=== PATIENT | male | born 1950 | race African-American/Black ===

== ENCOUNTER 2023-07-02 01:38 | Inpatient (IN) | payer OTHER, MEDICAID, MEDICARE ==
[~2023-07-02] VITALS: Ht 172.7 cm; Wt 78.0 kg
[2023-07-02] VITALS (12 sets, daily range): BP systolic 125–162; BP diastolic 61–74; PULSE 63–68; RESP 12–27; TEMP 97.8–98.1
[2023-07-02] MEDS ORDERED: FUROSEMIDE 40MG/4ML VIAL IV ONE (02:00)
[2023-07-02] MEDS ORDERED: NITROGLYCERIN 0.4MG TABLET SL SL PRN ×2 (02:00→15:00)
[2023-07-02] MEDS ORDERED: NITROGLYCERIN 50MG PREMIX 250 ML IV PRN ×2 (02:00→02:15)
[2023-07-02 02:14] LABS: EOSINOPHILS % 4.9 % (0.0-5.0); HEMATOCRIT. 43.2 % (42.0-52.0); HEMOGLOBIN. 14.3 g/dL (14.0-18.0); LYMPHOCYTES % 33.1 % (20.0-50.0); MEAN CORPUSCULAR VOLUME 96.8 fL (80.0-94.0); MEAN PLATELET VOLUME 10.4 fl (7.4-10.4); MONOCYTES % 9.4 % (2.0-8.0); NEUTROPHILS % 51.6 % (40.0-76.0); PLATELET 291 x1000/uL (130-400); RED BLOOD CELL COUNT 4.47 mill/uL (4.7-6.1); RED CELL DISTRIBUTION WIDTH 13.8 % (11.6-14.6)
[2023-07-02 04:07] LABS: ALANINE AMINOTRANSFERASE 10 IU/L (10-49); ALBUMIN 3.9 g/dL (3.2-4.8); ASPARTATE AMINOTRANSFERASE 15 IU/L (<34); BILIRUBIN TOTAL 0.5 mg/dL (0.1-1.0); CALCIUM 9.4 mg/dL (8.7-10.4); CARBON DIOXIDE 25 mEq/L (21-32); CHLORIDE 99 mEq/L (98-107); GLUCOSE 275 mg/dL (70-105); POTASSIUM 4.6 mEq/L (3.5-5.1); PROTEIN TOTAL 6.9 g/dL (6.0-8.3); SODIUM 134 mEq/L (136-145); UREA NITROGEN BLOOD 29 mg/dL (9-23)
[2023-07-02 04:50] LABS: CREATININE 6.2 mg/dL (0.6-1.3); TROPONIN I HIGH SENSITIVITY 275 ng/L (3.0-53)
[2023-07-02 06:57] LABS: TROPONIN I HIGH SENSITIVITY 2047 ng/L (3.0-53)
[2023-07-02] MEDS ORDERED: IPRATROPIUM/ALBUTEROL 0.5-3(2.5)MG/3ML NEB HHN PRN (08:15)
[2023-07-02] MEDS ORDERED: ACETAMINOPHEN 325MG TABLET PO PRN ×2 (08:15→15:00)
[2023-07-02] MEDS ORDERED: CLONIDINE 0.1MG TABLET PO PRN (08:15)
[2023-07-02] MEDS ORDERED: DOCUSATE SODIUM 100MG CAPSULE PO PRN (08:15)
[2023-07-02] MEDS ORDERED: TRAMADOL 50MG TABLET PO PRN (08:15)
[2023-07-02] MEDS ORDERED: GUAIFENESIN 200MG/10ML SUGAR FREE UDC PO PRN (08:15)
[2023-07-02] MEDS ORDERED: ONDANSETRON HCL 4MG/2ML INJ IV PRN (08:15)
[2023-07-02] MEDS ORDERED: NITROGLYCERIN OINT 1GM/INCH UDPKT TD NR (08:45)
[2023-07-02] MEDS ORDERED: AMLODIPINE 10MG TABLET PO SCH (09:00)
[2023-07-02] MEDS ORDERED: CLOPIDOGREL 75MG TABLET PO SCH (09:15)
[2023-07-02] MEDS: INSULIN GLARGINE 100 UNITS/ML SUBCUT SCH (09:26)
[2023-07-02] MEDS: ASPIRIN 81MG EC TABLET PO SCH (10:00)
[2023-07-02] MEDS ORDERED: ENOXAPARIN 100MG/ML SYR SUBCUT NR (10:00)
[2023-07-02 10:28] LABS: TROPONIN I HIGH SENSITIVITY 5588 ng/L (3.0-53)
[2023-07-02 10:30] LABS: PROTHROMBIN TIME 10.7 sec (9.6-11.0)
[2023-07-02] MEDS ORDERED: DORZ1DRO7 OP (10:52)
[2023-07-02] MEDS ORDERED: INSU100I28 SQ (10:52)
[2023-07-02] MEDS ORDERED: CARV12.545 PO (10:52)
[2023-07-02] MEDS ORDERED: ISMO20 PO (10:52)
[2023-07-02] MEDS ORDERED: ATOR-2 PO (10:52)
[2023-07-02] MEDS ORDERED: AMLO10TA4 PO (10:52)
[2023-07-02] MEDS ORDERED: LUBI24CA5 PO (10:52)
[2023-07-02] MEDS ORDERED: LATA2.5D14 EACHEYE (10:55)
[2023-07-02] MEDS ORDERED: DEXTROSE 50% WATER 50ML SYRINGE IV PRN (11:15)
[2023-07-02 11:19] LABS: HEPATITIS A AB IGM NEGATIVE (Negative); HEPATITIS B CORE AB IGM NEGATIVE (Negative); HEPATITIS B SURFACE ANTIGEN NEGATIVE (Negative); HEPATITIS C AB NON REACTIVE (Neg) (Negative)
[2023-07-02] MEDS: BLOOD SUGAR DIAGNOSTIC STRIP TEST SCH ×3 (11:51→21:01)
[2023-07-02] MEDS: INSULIN LISPRO 100 UNITS/ML SUBCUT SCH ×3 (11:51→21:17)
[2023-07-02] MEDS ORDERED: HEPARIN 1000 UNITS/ML 10ML ONE (12:46)
[2023-07-02] MEDS ORDERED: LIDOCAINE HCL 1% 20ML VIAL (Pyxis) INJ ONE (12:46)
[2023-07-02] MEDS ORDERED: IODIXANOL 320MG/ML 100 ML BOTTLE IV ONE (12:46)
[2023-07-02] MEDS ORDERED: MIDAZOLAM HCL 2 MG/2 ML VIAL ONE (12:46)
[2023-07-02] MEDS ORDERED: FENTANYL CITRATE/PF 50MCG/ML 2ML VIAL ONE (12:46)
[2023-07-02] MEDS ORDERED: CEFAZOLIN SODIUM 1000MG/VIAL ONE (13:10)
[2023-07-02] MEDS ORDERED: CHLORHEXIDINE GLUCONATE 4% EXTERNAL USE TOP SCH ×2 (15:00→21:00)
[2023-07-02] MEDS: NITROGLYCERIN OINT 1GM/INCH UDPKT TD SCH ×2 (16:45→22:24)
[2023-07-02] MEDS ORDERED: IPRATROPIUM/ALBUTEROL 0.5-3(2.5)MG/3ML NEB HHN SCH (18:00)
[2023-07-02] MEDS ORDERED: DIPHENHYDRAMINE 25MG CAPSULE PO PRN (21:00)
[2023-07-02] MEDS ORDERED: ASCORBIC ACID 500 MG TABLET PO SCH (21:00)
[2023-07-02] MEDS ORDERED: DOCUSATE SODIUM 100MG CAPSULE PO SCH (21:00)
[2023-07-02] MEDS ORDERED: BISACODYL 10MG SUPP PR PRN (21:00)
[2023-07-02] MEDS: ALLOPURINOL 300 MG TABLET PO SCH (21:18)
[2023-07-03] VITALS (35 sets, daily range): BP systolic 96–157; BP diastolic 50–73; PULSE 57–124; RESP 11–34; TEMP 94.2–99; O2SAT 100
[2023-07-03] MEDS: ALLOPURINOL 300 MG TABLET PO SCH (06:18)
[2023-07-03] MEDS: NITROGLYCERIN OINT 1GM/INCH UDPKT TD SCH (06:18)
[2023-07-03] MEDS: BLOOD SUGAR DIAGNOSTIC STRIP TEST SCH ×9 (06:50→23:00)
[2023-07-03 06:54] LABS: BASOPHILS % 0.8 % (0.0-2.0); EOSINOPHILS % 4.2 % (0.0-5.0); HEMATOCRIT. 32.2 % (42.0-52.0); LYMPHOCYTES % 22.9 % (20.0-50.0); MEAN CORPUSCULAR HEMOGLOBIN 33.2 pg (28.0-32.0); MEAN CORPUSCULAR HGB CONC 34.2 g/dL (31.0-37.0); MEAN CORPUSCULAR VOLUME 97.1 fL (80.0-94.0); MONOCYTES % 14.2 % (2.0-8.0); NEUTROPHILS % 57.9 % (40.0-76.0); PLATELET 151 x1000/uL (130-400); RED BLOOD CELL COUNT 3.31 mill/uL (4.7-6.1); RED CELL DISTRIBUTION WIDTH 13.4 % (11.6-14.6); WHITE BLOOD COUNT 5.4 x1000/uL (4.5-11.0)
[2023-07-03] MEDS ORDERED: NOREPINEPHRINE 8MG/250ML PMX 250ML IV NR (07:00)
[2023-07-03] MEDS ORDERED: NOREPINEPHRINE 8 MG in DEXT 5% WATER 250 ML IV NR (07:00)
[2023-07-03] MEDS ORDERED: CEFAZOLIN 2,000 MG in DEXT 5% WATER 100 ML IV NR (07:00)
[2023-07-03] MEDS ORDERED: DOBUTAMINE 250 MG/250 ML PREMIX IV NR (07:00)
[2023-07-03] MEDS ORDERED: INSULIN REGULAR 100 U/100 ML PREMIX IV NR (07:00)
[2023-07-03] MEDS ORDERED: NICARDIPINE 40MG/200ML PREMIX 230 ML IV NR (07:00)
[2023-07-03] MEDS ORDERED: EPINEPHRINE 5 MG in DEXT 5% WATER 250 ML IV NR (07:00)
[2023-07-03] MEDS ORDERED: PAPAVERINE HCL 180MG in SODIUM CHLORIDE 0.9% 24ML IV NR (07:00)
[2023-07-03] MEDS ORDERED: DEL NIDO CARDIOPLEGIA 1,000 ML (PREMIX) IV NR ×2 (07:00)
[2023-07-03 07:35] LABS: ALANINE AMINOTRANSFERASE 8 IU/L (10-49); ALBUMIN 3.3 g/dL (3.2-4.8); ASPARTATE AMINOTRANSFERASE 24 IU/L (<34); BILIRUBIN TOTAL 0.6 mg/dL (0.1-1.0); CALCIUM 8.9 mg/dL (8.7-10.4); CARBON DIOXIDE 24 mEq/L (21-32); CHLORIDE 101 mEq/L (98-107); CHOLESTEROL 106 mg/dL (<200); GLUCOSE 183 mg/dL (70-105); HDL CHOLESTEROL 24 mg/dL (>55); LDL CHOLESTEROL 63 mg/dL (5-100); POTASSIUM 4.8 mEq/L (3.5-5.1); SODIUM 135 mEq/L (136-145); TRIGLYCERIDE 93 mg/dL (0-150); UREA NITROGEN BLOOD 37 mg/dL (9-23)
[2023-07-03] MEDS: ASPIRIN 81MG EC TABLET PO SCH (07:46)
[2023-07-03 07:53] LABS: CREATININE 6.4 mg/dL (0.6-1.3); TROPONIN I HIGH SENSITIVITY 7889 ng/L (3.0-53)
[2023-07-03] MEDS: INSULIN LISPRO 100 UNITS/ML SUBCUT SCH ×3 (08:52→21:00)
[2023-07-03] MEDS ORDERED: AMLODIPINE 5MG TABLET PO SCH (09:00)
[2023-07-03] MEDS: INSULIN GLARGINE 100 UNITS/ML SUBCUT SCH (10:00)
[2023-07-03] MEDS ORDERED: POLYMYXIN B SULFATE 500000 UNITS/VIAL ONE (10:42)
[2023-07-03] MEDS ORDERED: THROMBIN (BOVINE) 5000 UNITS/VIAL TOP ONE (10:43)
[2023-07-03] MEDS ORDERED: SKIN ADHESIVE 0.7 GM EA TOP ONE (10:43)
[2023-07-03] MEDS ORDERED: SEVOFLURANE 250 ML LIQUID INH ONE (10:50)
[2023-07-03] MEDS ORDERED: DOPAMINE 400MG/250ML PREMIX 250 ML IV ONE (10:50)
[2023-07-03] MEDS ORDERED: HEPARIN 1000 UNITS/ML 10ML ONE ×2 (10:51→10:59)
[2023-07-03] MEDS ORDERED: NICARDIPINE 40MG/200ML PREMIX 200 ML IV ONE (10:51)
[2023-07-03] MEDS ORDERED: NITROGLYCERIN 50MG PREMIX 250 ML IV ONE (10:51)
[2023-07-03] MEDS ORDERED: LIDOCAINE HCL 1% 10 MG/ML 10ML VIAL ONE (10:59)
[2023-07-03] MEDS ORDERED: VECURONIUM BROMIDE 10 MG/VIAL IV ONE (10:59)
[2023-07-03] MEDS ORDERED: AMINOCAPROIC ACID 250 MG/ML 20ML VIAL ONE (10:59)
[2023-07-03] MEDS ORDERED: LIDOCAINE HCL 2% 5ML SYRINGE IV ONE (11:00)
[2023-07-03] MEDS ORDERED: PHENYLEPHRINE HCL 10 MG/ML 1ML (IV VIAL) IV ONE (11:02)
[2023-07-03] MEDS ORDERED: ETOMIDATE 2MG/ML 10ML VIAL IV ONE ×2 (11:03→11:06)
[2023-07-03] MEDS ORDERED: PROPOFOL 200MG/20ML VIAL IV ONE (11:07)
[2023-07-03] MEDS ORDERED: MAGNESIUM SULFATE 5GM/10ML VIAL IV ONE (11:10)
[2023-07-03] MEDS ORDERED: ALBUMIN HUMAN 25GM/100ML (25%) IV ONE (11:10)
[2023-07-03] MEDS ORDERED: FENTANYL CITRATE/PF 50MCG/ML 2ML VIAL ONE ×2 (11:20)
[2023-07-03] MEDS ORDERED: CALCIUM CHLORIDE 1GM/10ML SYR IV ONE ×2 (11:21→16:00)
[2023-07-03] MEDS ORDERED: ACETAMINOPHEN 500MG TABLET ONE (12:00)
[2023-07-03] MEDS ORDERED: FUROSEMIDE 20MG/2ML VIAL ONE (12:58)
[2023-07-03] MEDS ORDERED: NALOXONE HCL 0.4MG/ML VIAL IV PRN (13:45)
[2023-07-03] MEDS ORDERED: SODIUM BICARBONATE 8.4% 1 MEQ/ML 50ML SYR IV ONE (14:23)
[2023-07-03 14:25] LABS: CLARITY URINE CLOUDY (CLEAR); COLOR URINE YELLOW (YELLOW); GLUCOSE URINE TRACE (NEGATIVE); KETONES URINE NEGATIVE (NEGATIVE); LEUKOCYTE ESTERASE URINE 2+ (NEGATIVE); NITRITE URINE NEGATIVE (NEGATIVE); OCCULT BLOOD URINE 2+ (NEGATIVE); PROTEIN URINE 3+ (NEGATIVE); UROBILINOGEN URINE 0.2 E.U./dL (0.2-1.0)
[2023-07-03] MEDS ORDERED: PROTAMINE SULFATE 10MG/ML VIAL 25ML IV ONE (14:31)
[2023-07-03] MEDS ORDERED: GLYCOPYRROLATE 0.2 MG/ML 2ML VIAL ONE (14:34)
[2023-07-03] MEDS ORDERED: NEOSTIGMINE METHYLSULFATE 1MG/ML 10 ML VIAL ONE (14:34)
[2023-07-03 14:52] LABS: WBC URINE TNTC /hpf (0-2)
[2023-07-03 14:54] LABS: SQUAMOUS EPITHELIAL CELL URINE NONE SEEN /lpf (RARE/1+)
[2023-07-03 14:55] LABS: BACTERIA URINE 2+
[2023-07-03] MEDS ORDERED: ONDANSETRON HCL 4MG/2ML INJ ONE (15:10)
[2023-07-03] MEDS ORDERED: MAGNESIUM 2 G PREMIX 50 ML IV PRN (15:30)
[2023-07-03] MEDS ORDERED: ALBUMIN HUMAN 25GM/100ML (25%) IV PRN (15:30)
[2023-07-03] MEDS ORDERED: EPINEPHRINE 5 MG in DEXT 5% WATER 245 ML IV PRN (15:30)
[2023-07-03] MEDS ORDERED: CALCIUM CHLORIDE 3,000 MG in DEXT 5% WATER 250 ML IV PRN (15:30)
[2023-07-03] MEDS ORDERED: OXYCODONE HCL/ACETAMINOPHEN 5/325MG TABLET PO PRN (15:30)
[2023-07-03] MEDS ORDERED: CALCIUM CHLORIDE 5,000 MG in DEXT 5% WATER 500 ML IV PRN (15:30)
[2023-07-03] MEDS ORDERED: SODIUM CHLORIDE 0.9% 500 ML IV PRN (15:30)
[2023-07-03] MEDS ORDERED: MAGNESIUM SULFATE 3 GM in DEXT 5% WATER 100 ML IV PRN (15:30)
[2023-07-03] MEDS ORDERED: ACETAMINOPHEN 325MG TABLET PO PRN (15:30)
[2023-07-03] MEDS ORDERED: NITROGLYCERIN 50MG PREMIX 250 ML IV PRN (15:30)
[2023-07-03] MEDS ORDERED: KETOROLAC 30MG/ML VIAL IV PRN (15:30)
[2023-07-03] MEDS ORDERED: ALBUMIN HUMAN 12.5G/250ML (5%) IV PRN (15:30)
[2023-07-03] MEDS: DEXT 5%/0.45% NACL 1000ML 1,000 ML IV SCH (16:00)
[2023-07-03] MEDS: INSULIN REGULAR 100U/100ML PMX 100 ML IV SCH (16:00)
[2023-07-03] MEDS ORDERED: DEXTROSE 50% WATER 50ML SYRINGE IV PRN (16:00)
[2023-07-03] MEDS: DOPAMINE 400MG/250ML PREMIX 250 ML IV PRN (16:04)
[2023-07-03] MEDS ORDERED: CALCIUM CHLORIDE 1GM/10ML SYR IV NR (16:15)
[2023-07-03 16:18] LABS: BG BASE EXCESS -5.5 mmol/L (-2.0-2.0); BG CARBOXYHEMOGLOBIN 0.3 % (0.5-1.5); BG DEOXYHEMOGLOBIN 1.1 % (0.0-5.0); BG FRACTION INSPIRED OXYGEN 100; BG HCO3 ACT 20.3 mmol/L (22.0-26.0); BG METHEMOGLOBIN 0.3 % (0.0-1.5); BG OXYGEN SATURATION 98.9 % (92.0-98.5); BG OXYHEMOGLOBIN 98.3 % (94.0-97.0); BG PCO2 40.5 mmHg (35.0-45.0); BG PH 7.317 (7.350-7.450); BG PO2 262.9 mmHg (75.0-100.0); BG SAMPLE SITE ALINE; BG TOTAL HEMOGLOBIN 11.4 g/dL (12.0-18.0); BG VENT MODE MASK - NRB
[2023-07-03] MEDS ORDERED: SODIUM BICARBONATE 8.4% 1 MEQ/ML 50ML SYR IV NR (16:30)
[2023-07-03 16:32] LABS: BASOPHILS % 0.3 % (0.0-2.0); EOSINOPHILS % 0.5 % (0.0-5.0); HEMATOCRIT. 31.3 % (42.0-52.0); HEMOGLOBIN. 10.3 g/dL (14.0-18.0); MEAN CORPUSCULAR HEMOGLOBIN 32.2 pg (28.0-32.0); MEAN CORPUSCULAR HGB CONC 32.9 g/dL (31.0-37.0); MEAN CORPUSCULAR VOLUME 97.9 fL (80.0-94.0); MEAN PLATELET VOLUME 9.8 fl (7.4-10.4); MONOCYTES % 3.4 % (2.0-8.0); NEUTROPHILS % 87.8 % (40.0-76.0); PLATELET 168 x1000/uL (130-400); RED CELL DISTRIBUTION WIDTH 13.3 % (11.6-14.6); WHITE BLOOD COUNT 13.6 x1000/uL (4.5-11.0)
[2023-07-03 16:40] LABS: INR 1.1; PROTHROMBIN TIME 11.8 sec (9.6-11.0)
[2023-07-03 16:55] LABS: CALCIUM 11.3 mg/dL (8.7-10.4); CARBON DIOXIDE 21 mEq/L (21-32); CHLORIDE 101 mEq/L (98-107); GLUCOSE 245 mg/dL (70-105); POTASSIUM 3.8 mEq/L (3.5-5.1); SODIUM 138 mEq/L (136-145); UREA NITROGEN BLOOD 43 mg/dL (9-23)
[2023-07-03] MEDS: BACITRACIN 14GM TUBE TOP SCH (17:00)
[2023-07-03] MEDS ORDERED: VANCOMYCIN 1500MG in DEXTROSE 5% WATER 250ML IV NR (17:00)
[2023-07-03 17:14] LABS: CREATININE 6.8 mg/dL (0.6-1.3)
[2023-07-03] MEDS ORDERED: AMIODARONE 150MG/100ML PREMIX 100 ML IV NR (17:30)
[2023-07-03] MEDS: MAGNESIUM 1 G PREMIX 100 ML IV PRN (18:08)
[2023-07-03] MEDS: AMIODARONE HCL 900 MG in DEXT 5% WATER 482 ML IV PRN (18:08)
[2023-07-03] MEDS: OXYCODONE HCL/ACETAMINOPHEN 5/325MG TABLET PO PRN (19:29)
[2023-07-03] MEDS ORDERED: INSULIN REGULAR 100U/100ML PMX 100 ML IV SCH (20:15)
[2023-07-03] MEDS: ATORVASTATIN CALCIUM 20MG TABLET PO SCH (20:22)
[2023-07-03] MEDS: AMIODARONE HCL 200 MG TABLET PO SCH (20:23)
[2023-07-03] MEDS ORDERED: FENTANYL CITRATE/PF 50MCG/ML 2ML VIAL IV NR (20:45)
[2023-07-03] MEDS: IPRATROPIUM/ALBUTEROL 0.5-3(2.5)MG/3ML NEB HHN SCH (20:52)
[2023-07-03] MEDS: ASPIRIN 81MG TABLET PO SCH (22:22)
[2023-07-03] MEDS: CLOPIDOGREL 75MG TABLET PO SCH (22:23)
[2023-07-03] MEDS: ONDANSETRON HCL 4MG/2ML INJ IV PRN (22:43)
[2023-07-04] VITALS (94 sets, daily range): BP systolic 104–200; BP diastolic 45–87; PULSE 48–96; RESP 10–36; TEMP 97.1–98.6; O2SAT 99–100
[2023-07-04] MEDS: IPRATROPIUM/ALBUTEROL 0.5-3(2.5)MG/3ML NEB HHN SCH ×6 (00:08→19:30)
[2023-07-04 00:52] LABS: HEMATOCRIT. 29.4 % (42.0-52.0); HEMOGLOBIN. 9.9 g/dL (14.0-18.0); MEAN CORPUSCULAR HEMOGLOBIN 32.6 pg (28.0-32.0); MEAN CORPUSCULAR HGB CONC 33.7 g/dL (31.0-37.0); MEAN CORPUSCULAR VOLUME 96.7 fL (80.0-94.0); MEAN PLATELET VOLUME 9.6 fl (7.4-10.4); PLATELET 208 x1000/uL (130-400); RED BLOOD CELL COUNT 3.04 mill/uL (4.7-6.1); RED CELL DISTRIBUTION WIDTH 13.4 % (11.6-14.6); WHITE BLOOD COUNT 15.2 x1000/uL (4.5-11.0)
[2023-07-04 00:57] LABS: DIFFERENTIAL COMMENT 1
[2023-07-04] MEDS: BLOOD SUGAR DIAGNOSTIC STRIP TEST SCH ×24 (01:00→23:16)
[2023-07-04 01:30] LABS: CALCIUM 10.2 mg/dL (8.7-10.4); CARBON DIOXIDE 23 mEq/L (21-32); CHLORIDE 100 mEq/L (98-107); GLUCOSE 138 mg/dL (70-105); PHOSPHORUS 1.4 mg/dL (2.5-4.9); POTASSIUM 3.4 mEq/L (3.5-5.1); SODIUM 138 mEq/L (136-145); UREA NITROGEN BLOOD 47 mg/dL (9-23)
[2023-07-04 01:33] LABS: CREATININE 7.4 mg/dL (0.6-1.3)
[2023-07-04] MEDS: ONDANSETRON HCL 4MG/2ML INJ IV PRN ×4 (01:53→20:20)
[2023-07-04] MEDS ORDERED: KCL 20MEQ/100ML PREMIX 50 ML IV NR (02:30)
[2023-07-04] MEDS: DOPAMINE 400MG/250ML PREMIX 250 ML IV PRN (04:07)
[2023-07-04] MEDS ORDERED: KCL 20MEQ/100ML PREMIX 100 ML IV NR (04:30)
[2023-07-04 06:27] LABS: BG BASE EXCESS -1.3 mmol/L (-2.0-2.0); BG DEOXYHEMOGLOBIN 2.9 % (0.0-5.0); BG FRACTION INSPIRED OXYGEN 28; BG HCO3 ACT 23.6 mmol/L (22.0-26.0); BG METHEMOGLOBIN 0.3 % (0.0-1.5); BG OXYGEN SATURATION 97.1 % (92.0-98.5); BG OXYHEMOGLOBIN 96.8 % (94.0-97.0); BG PCO2 40.4 mmHg (35.0-45.0); BG PH 7.385 (7.350-7.450); BG PO2 110.2 mmHg (75.0-100.0); BG SAMPLE SITE ALINE; BG TOTAL HEMOGLOBIN 11.3 g/dL (12.0-18.0); BG VENT MODE NASAL CANNULA
[2023-07-04 06:53] LABS: HEMATOCRIT. 30.3 % (42.0-52.0); HEMOGLOBIN. 10.4 g/dL (14.0-18.0); MEAN CORPUSCULAR HEMOGLOBIN 32.6 pg (28.0-32.0); MEAN CORPUSCULAR HGB CONC 34.2 g/dL (31.0-37.0); MEAN CORPUSCULAR VOLUME 95.2 fL (80.0-94.0); MEAN PLATELET VOLUME 9.8 fl (7.4-10.4); PLATELET 227 x1000/uL (130-400); RED BLOOD CELL COUNT 3.19 mill/uL (4.7-6.1); RED CELL DISTRIBUTION WIDTH 13.5 % (11.6-14.6); WHITE BLOOD COUNT 19.3 x1000/uL (4.5-11.0)
[2023-07-04 07:09] LABS: CALCIUM 9.6 mg/dL (8.7-10.4); CARBON DIOXIDE 23 mEq/L (21-32); CHLORIDE 100 mEq/L (98-107); GLUCOSE 138 mg/dL (70-105); PHOSPHORUS 3.8 mg/dL (2.5-4.9); POTASSIUM 5.1 mEq/L (3.5-5.1); SODIUM 135 mEq/L (136-145); UREA NITROGEN BLOOD 51 mg/dL (9-23)
[2023-07-04 07:26] LABS: DIFFERENTIAL COMMENT 1
[2023-07-04 07:27] LABS: CREATININE 7.3 mg/dL (0.6-1.3)
[2023-07-04] MEDS: INSULIN LISPRO 100 UNITS/ML SUBCUT SCH ×2 (08:20→12:44)
[2023-07-04] MEDS: AMIODARONE HCL 200 MG TABLET PO SCH ×2 (08:38→20:20)
[2023-07-04] MEDS: FAMOTIDINE 20MG/2ML VIAL IV SCH (08:39)
[2023-07-04] MEDS: AMIODARONE HCL 900 MG in DEXT 5% WATER 482 ML IV PRN (08:39)
[2023-07-04] MEDS: MAGNESIUM 1 G PREMIX 100 ML IV PRN (08:40)
[2023-07-04] MEDS: BACITRACIN 14GM TUBE TOP SCH ×2 (09:00→17:45)
[2023-07-04] MEDS: INSULIN GLARGINE 100 UNITS/ML SUBCUT SCH (09:11)
[2023-07-04] MEDS ORDERED: METOCLOPRAMIDE HCL 10MG/2ML VIAL IV PRN (09:15)
[2023-07-04 09:20] LABS: PLATELET ESTIMATE NORMAL
[2023-07-04 10:43] LABS: PLATELET ESTIMATE NORMAL
[2023-07-04] MEDS ORDERED: WATER IV NR (11:00)
[2023-07-04] MEDS ORDERED: DEXT 5% IV NR (11:00)
[2023-07-04] MEDS ORDERED: CALCIUM GLUCONATE IV NR (11:00)
[2023-07-04 12:47] LABS: HEMATOCRIT. 31.7 % (42.0-52.0); HEMOGLOBIN. 10.5 g/dL (14.0-18.0); MEAN CORPUSCULAR HEMOGLOBIN 32.5 pg (28.0-32.0); MEAN CORPUSCULAR HGB CONC 33.1 g/dL (31.0-37.0); MEAN PLATELET VOLUME 9.8 fl (7.4-10.4); PLATELET 206 x1000/uL (130-400); RED BLOOD CELL COUNT 3.24 mill/uL (4.7-6.1); RED CELL DISTRIBUTION WIDTH 13.8 % (11.6-14.6)
[2023-07-04] MEDS ORDERED: KETOROLAC 30MG/ML VIAL IV PRN (13:00)
[2023-07-04 13:05] LABS: DIFFERENTIAL COMMENT 1
[2023-07-04 13:38] LABS: PLATELET ESTIMATE NORMAL
[2023-07-04 13:51] LABS: CARBON DIOXIDE 21 mEq/L (21-32); CHLORIDE 98 mEq/L (98-107); GLUCOSE 145 mg/dL (70-105); PHOSPHORUS 4.8 mg/dL (2.5-4.9); POTASSIUM 5.7 mEq/L (3.5-5.1); SODIUM 132 mEq/L (136-145); UREA NITROGEN BLOOD 54 mg/dL (9-23)
[2023-07-04 14:01] LABS: CREATININE 7.7 mg/dL (0.6-1.3)
[2023-07-04] MEDS ORDERED: DEXTROSE 50% WATER 50ML SYRINGE IV NR (14:45)
[2023-07-04] MEDS ORDERED: INSULIN REGULAR (HUMULIN R) 300UNITS/3ML VIAL IV NR (14:45)
[2023-07-04] MEDS ORDERED: CALCIUM CHLORIDE 1GM/10ML SYR IV ONE (14:45)
[2023-07-04] MEDS ORDERED: CALCIUM CHLORIDE 2,000 MG in DEXT 5% WATER 250 ML IV NR (15:30)
[2023-07-04] MEDS: INSULIN REGULAR 100U/100ML PMX 100 ML IV SCH (15:54)
[2023-07-04] MEDS: DEXT 5%/0.45% NACL 1000ML 1,000 ML IV SCH (15:59)
[2023-07-04] MEDS: METOCLOPRAMIDE HCL 10MG/2ML VIAL IV SCH ×2 (17:45→23:17)
[2023-07-04 19:07] LABS: DIFFERENTIAL COMMENT 1; HEMOGLOBIN. 10.8 g/dL (14.0-18.0); MEAN CORPUSCULAR HEMOGLOBIN 32.1 pg (28.0-32.0); MEAN CORPUSCULAR HGB CONC 32.8 g/dL (31.0-37.0); MEAN CORPUSCULAR VOLUME 97.9 fL (80.0-94.0); MEAN PLATELET VOLUME 9.5 fl (7.4-10.4); PLATELET 197 x1000/uL (130-400); RED BLOOD CELL COUNT 3.37 mill/uL (4.7-6.1); RED CELL DISTRIBUTION WIDTH 13.8 % (11.6-14.6); WHITE BLOOD COUNT 19.7 x1000/uL (4.5-11.0)
[2023-07-04 19:37] LABS: PHOSPHORUS 5.6 mg/dL (2.5-4.9)
[2023-07-04] MEDS: DEXTROSE 50% WATER 50ML SYRINGE IV PRN (20:20)
[2023-07-04] MEDS: ATORVASTATIN CALCIUM 20MG TABLET PO SCH (20:20)
[2023-07-04] MEDS: OXYCODONE HCL/ACETAMINOPHEN 5/325MG TABLET PO PRN (20:21)
[2023-07-04 23:19] LABS: PLATELET ESTIMATE NORMAL
[2023-07-05] VITALS (97 sets, daily range): BP systolic 96–180; BP diastolic 39–106; PULSE 45–76; RESP 10–45; TEMP 97–98.5; O2SAT 94–100
[2023-07-05] MEDS: IPRATROPIUM/ALBUTEROL 0.5-3(2.5)MG/3ML NEB HHN SCH ×6 (00:33→20:22)
[2023-07-05] MEDS: BLOOD SUGAR DIAGNOSTIC STRIP TEST SCH ×17 (01:11→21:00)
[2023-07-05 01:20] LABS: HEMATOCRIT. 31.8 % (42.0-52.0); HEMOGLOBIN. 10.7 g/dL (14.0-18.0); MEAN CORPUSCULAR HEMOGLOBIN 32.8 pg (28.0-32.0); MEAN CORPUSCULAR HGB CONC 33.8 g/dL (31.0-37.0); MEAN CORPUSCULAR VOLUME 97.1 fL (80.0-94.0); MEAN PLATELET VOLUME 10.1 fl (7.4-10.4); PLATELET 184 x1000/uL (130-400); RED BLOOD CELL COUNT 3.27 mill/uL (4.7-6.1); RED CELL DISTRIBUTION WIDTH 13.5 % (11.6-14.6); WHITE BLOOD COUNT 18.4 x1000/uL (4.5-11.0)
[2023-07-05 01:21] LABS: CALCIUM 10.3 mg/dL (8.7-10.4); CARBON DIOXIDE 26 mEq/L (21-32); CHLORIDE 101 mEq/L (98-107); GLUCOSE 110 mg/dL (70-105); POTASSIUM 4.8 mEq/L (3.5-5.1); SODIUM 136 mEq/L (136-145); UREA NITROGEN BLOOD 32 mg/dL (9-23)
[2023-07-05 01:56] LABS: CREATININE 5.2 mg/dL (0.6-1.3)
[2023-07-05] MEDS: DIPHENHYDRAMINE 50MG/ML VIAL IV PRN (01:59)
[2023-07-05 02:15] LABS: DIFFERENTIAL COMMENT 1
[2023-07-05] MEDS: DEXTROSE 50% WATER 50ML SYRINGE IV PRN ×3 (03:08→12:11)
[2023-07-05] MEDS: METOCLOPRAMIDE HCL 10MG/2ML VIAL IV SCH ×4 (05:23→23:41)
[2023-07-05 06:18] LABS: HEMATOCRIT. 31.5 % (42.0-52.0); HEMOGLOBIN. 10.5 g/dL (14.0-18.0); MEAN CORPUSCULAR HEMOGLOBIN 32.4 pg (28.0-32.0); MEAN CORPUSCULAR HGB CONC 33.2 g/dL (31.0-37.0); MEAN CORPUSCULAR VOLUME 97.6 fL (80.0-94.0); MEAN PLATELET VOLUME 10.3 fl (7.4-10.4); PLATELET 166 x1000/uL (130-400); RED BLOOD CELL COUNT 3.23 mill/uL (4.7-6.1); RED CELL DISTRIBUTION WIDTH 13.8 % (11.6-14.6); WHITE BLOOD COUNT 14.5 x1000/uL (4.5-11.0)
[2023-07-05] MEDS: DOPAMINE 400MG/250ML PREMIX 250 ML IV PRN (06:20)
[2023-07-05 06:29] LABS: DIFFERENTIAL COMMENT 1
[2023-07-05 06:44] LABS: CALCIUM 9.8 mg/dL (8.7-10.4); CARBON DIOXIDE 21 mEq/L (21-32); CHLORIDE 100 mEq/L (98-107); GLUCOSE 164 mg/dL (70-105); PHOSPHORUS 5.7 mg/dL (2.5-4.9); SODIUM 134 mEq/L (136-145); UREA NITROGEN BLOOD 36 mg/dL (9-23)
[2023-07-05] MEDS ORDERED: DOPAMINE 400MG/250ML PREMIX 250 ML IV SCH (06:45)
[2023-07-05 07:02] LABS: CREATININE 5.9 mg/dL (0.6-1.3)
[2023-07-05 07:03] LABS: POTASSIUM 6.4 mEq/L (3.5-5.1)
[2023-07-05] MEDS ORDERED: DEXTROSE 50% WATER 50ML SYRINGE IV NR (07:30)
[2023-07-05] MEDS ORDERED: INSULIN REGULAR (HUMULIN R) 300UNITS/3ML VIAL IV NR (07:30)
[2023-07-05 09:02] LABS: PLATELET ESTIMATE NORMAL
[2023-07-05] MEDS: BACITRACIN 14GM TUBE TOP SCH ×2 (09:07→18:26)
[2023-07-05 09:17] LABS: PLATELET ESTIMATE NORMAL
[2023-07-05] MEDS ORDERED: CALCIUM CHLORIDE 2,000 MG in DEXT 5% WATER 250 ML IV NR (09:30)
[2023-07-05] MEDS: INSULIN GLARGINE 100 UNITS/ML SUBCUT SCH (09:33)
[2023-07-05 14:20] LABS: POTASSIUM 4.6 mEq/L (3.5-5.1)
[2023-07-05] MEDS ORDERED: DEXTROSE 50% WATER 50ML SYRINGE IV PRN (18:15)
[2023-07-05] MEDS: INSULIN LISPRO 100 UNITS/ML SUBCUT SCH ×2 (18:20→20:49)
[2023-07-05] MEDS: DEXT 5%/0.45% NACL 1000ML 1,000 ML IV SCH (18:26)
[2023-07-05] MEDS: ATORVASTATIN CALCIUM 20MG TABLET PO SCH (20:46)
[2023-07-05] MEDS: AMIODARONE HCL 200 MG TABLET PO SCH (20:46)
[2023-07-06] VITALS (92 sets, daily range): BP systolic 100–177; BP diastolic 42–131; PULSE 62–70; RESP 13–29; TEMP 97.6–98.7; O2SAT 96–100
[2023-07-06] MEDS: IPRATROPIUM/ALBUTEROL 0.5-3(2.5)MG/3ML NEB HHN SCH ×6 (00:33→21:49)
[2023-07-06] MEDS: OXYCODONE HCL/ACETAMINOPHEN 5/325MG TABLET PO PRN (02:29)
[2023-07-06 06:30] LABS: HEMATOCRIT. 30.2 % (42.0-52.0); HEMOGLOBIN. 10.2 g/dL (14.0-18.0); MEAN CORPUSCULAR HGB CONC 33.8 g/dL (31.0-37.0); MEAN CORPUSCULAR VOLUME 97.7 fL (80.0-94.0); MEAN PLATELET VOLUME 10.2 fl (7.4-10.4); PLATELET 155 x1000/uL (130-400); RED CELL DISTRIBUTION WIDTH 14.1 % (11.6-14.6); WHITE BLOOD COUNT 12.2 x1000/uL (4.5-11.0)
[2023-07-06] MEDS: METOCLOPRAMIDE HCL 10MG/2ML VIAL IV SCH ×3 (07:12→18:15)
[2023-07-06 07:35] LABS: DIFFERENTIAL COMMENT 1
[2023-07-06] MEDS: BLOOD SUGAR DIAGNOSTIC STRIP TEST SCH ×4 (08:18→20:34)
[2023-07-06] MEDS: AMIODARONE HCL 200 MG TABLET PO SCH ×2 (08:31→20:44)
[2023-07-06] MEDS ORDERED: ASPIRIN 81MG TABLET ONE (08:46)
[2023-07-06] MEDS: FAMOTIDINE 20MG/2ML VIAL IV SCH (08:49)
[2023-07-06] MEDS: CLOPIDOGREL 75MG TABLET PO SCH (08:50)
[2023-07-06] MEDS: ASPIRIN 81MG TABLET PO SCH (08:50)
[2023-07-06] MEDS: AMLODIPINE 5MG TABLET PO SCH ×2 (08:50→20:44)
[2023-07-06] MEDS: BACITRACIN 14GM TUBE TOP SCH ×2 (08:51→17:20)
[2023-07-06] MEDS: INSULIN LISPRO 100 UNITS/ML SUBCUT SCH ×4 (08:58→20:34)
[2023-07-06 09:59] LABS: CALCIUM 9.7 mg/dL (8.7-10.4); POTASSIUM 5.5 mEq/L (3.5-5.1)
[2023-07-06 10:33] LABS: CREATININE 6.4 mg/dL (0.6-1.3)
[2023-07-06] MEDS: INSULIN GLARGINE 100 UNITS/ML SUBCUT SCH (11:20)
[2023-07-06] MEDS: CEFTRIAXONE 1,000 MG in DEXTROSE 5% WATER 50 ML IV SCH (12:38)
[2023-07-06 13:01] LABS: PLATELET ESTIMATE NORMAL
[2023-07-06] MEDS: DEXT 5%/0.45% NACL 1000ML 1,000 ML IV SCH (17:20)
[2023-07-06 19:42] LABS: POTASSIUM 3.8 mEq/L (3.5-5.1)
[2023-07-06] MEDS: ATORVASTATIN CALCIUM 20MG TABLET PO SCH (20:45)
[2023-07-06] MEDS ORDERED: NITROFURANTOIN 100MG M/M CAPSULE PO SCH (21:00)
[2023-07-06] MEDS: DIPHENHYDRAMINE 50MG/ML VIAL IV PRN (22:07)
[2023-07-07] VITALS (32 sets, daily range): BP systolic 119–178; BP diastolic 53–84; PULSE 60–98; RESP 14–29; TEMP 97.2–98.5; O2SAT 92–99
[2023-07-07] MEDS: METOCLOPRAMIDE HCL 10MG/2ML VIAL IV SCH ×4 (00:33→18:02)
[2023-07-07] MEDS: IPRATROPIUM/ALBUTEROL 0.5-3(2.5)MG/3ML NEB HHN SCH ×6 (01:50→20:43)
[2023-07-07] MEDS ORDERED: DOPAMINE 400MG/250ML PREMIX 250 ML IV PRN (02:45)
[2023-07-07 05:47] LABS: BASOPHILS % 0.3 % (0.0-2.0); EOSINOPHILS % 1.1 % (0.0-5.0); HEMATOCRIT. 28.1 % (42.0-52.0); HEMOGLOBIN. 9.4 g/dL (14.0-18.0); LYMPHOCYTES % 7.6 % (20.0-50.0); MEAN CORPUSCULAR HEMOGLOBIN 32.8 pg (28.0-32.0); MEAN CORPUSCULAR HGB CONC 33.5 g/dL (31.0-37.0); MEAN PLATELET VOLUME 10.1 fl (7.4-10.4); MONOCYTES % 14.6 % (2.0-8.0); NEUTROPHILS % 76.4 % (40.0-76.0); PLATELET 167 x1000/uL (130-400); RED BLOOD CELL COUNT 2.87 mill/uL (4.7-6.1); RED CELL DISTRIBUTION WIDTH 13.7 % (11.6-14.6); WHITE BLOOD COUNT 10.3 x1000/uL (4.5-11.0)
[2023-07-07 07:14] LABS: POTASSIUM 4.1 mEq/L (3.5-5.1)
[2023-07-07] MEDS ORDERED: METHYLPREDNISOLONE SOD SUCC 125MG/2ML (ACT-O-VIAL) IV NR (07:30)
[2023-07-07 07:42] LABS: CREATININE 5.6 mg/dL (0.6-1.3)
[2023-07-07] MEDS: BLOOD SUGAR DIAGNOSTIC STRIP TEST SCH ×4 (08:30→20:55)
[2023-07-07] MEDS: METHYLPREDNISOLONE 4MG TABLET PO SCH (09:00)
[2023-07-07] MEDS: AMIODARONE HCL 200 MG TABLET PO SCH ×3 (09:01→20:55)
[2023-07-07] MEDS: CLOPIDOGREL 75MG TABLET PO SCH (09:01)
[2023-07-07] MEDS: ASPIRIN 81MG TABLET PO SCH (09:01)
[2023-07-07] MEDS: BACITRACIN 14GM TUBE TOP SCH ×2 (09:02→17:58)
[2023-07-07] MEDS: INSULIN LISPRO 100 UNITS/ML SUBCUT SCH ×3 (09:02→20:56)
[2023-07-07] MEDS: AMLODIPINE 5MG TABLET PO SCH ×2 (09:02→20:55)
[2023-07-07] MEDS: INSULIN GLARGINE 100 UNITS/ML SUBCUT SCH (09:42)
[2023-07-07] MEDS: DEXAMETHASONE 10 MG/ML VIAL IV SCH ×2 (13:32→18:02)
[2023-07-07] MEDS: CEFTRIAXONE 1,000 MG in DEXTROSE 5% WATER 50 ML IV SCH (13:32)
[2023-07-07] MEDS: DEXT 5%/0.45% NACL 1000ML 1,000 ML IV SCH (16:46)
[2023-07-07] MEDS ORDERED: INSULIN LISPRO 100 UNITS/ML SUBCUT NR (19:00)
[2023-07-07] MEDS: ATORVASTATIN CALCIUM 20MG TABLET PO SCH (20:55)
[2023-07-08] VITALS (19 sets, daily range): BP systolic 109–150; BP diastolic 51–70; PULSE 59–66; RESP 12–19; TEMP 88.1–98.1; O2SAT 97–98
[2023-07-08] MEDS: IPRATROPIUM/ALBUTEROL 0.5-3(2.5)MG/3ML NEB HHN SCH ×5 (00:17→16:54)
[2023-07-08] MEDS: METOCLOPRAMIDE HCL 10MG/2ML VIAL IV SCH ×4 (00:36→17:52)
[2023-07-08] MEDS: DEXAMETHASONE 10 MG/ML VIAL IV SCH ×4 (00:36→17:52)
[2023-07-08] MEDS: BLOOD SUGAR DIAGNOSTIC STRIP TEST SCH ×4 (06:12→20:59)
[2023-07-08] MEDS: AMIODARONE HCL 200 MG TABLET PO SCH ×2 (06:12→18:01)
[2023-07-08 06:52] LABS: HEMATOCRIT. 30.2 % (42.0-52.0); HEMOGLOBIN. 10.1 g/dL (14.0-18.0); MEAN CORPUSCULAR HEMOGLOBIN 32.7 pg (28.0-32.0); MEAN CORPUSCULAR HGB CONC 33.4 g/dL (31.0-37.0); MEAN CORPUSCULAR VOLUME 97.9 fL (80.0-94.0); PLATELET 207 x1000/uL (130-400); RED BLOOD CELL COUNT 3.09 mill/uL (4.7-6.1); RED CELL DISTRIBUTION WIDTH 13.6 % (11.6-14.6); WHITE BLOOD COUNT 10.8 x1000/uL (4.5-11.0)
[2023-07-08 07:02] LABS: DIFFERENTIAL COMMENT 1
[2023-07-08 07:14] LABS: CALCIUM 9.1 mg/dL (8.7-10.4); POTASSIUM 4.8 mEq/L (3.5-5.1)
[2023-07-08] MEDS: FAMOTIDINE 20MG/2ML VIAL IV SCH (08:20)
[2023-07-08] MEDS: ASPIRIN 81MG TABLET PO SCH (08:20)
[2023-07-08] MEDS: CLOPIDOGREL 75MG TABLET PO SCH (08:20)
[2023-07-08] MEDS: BACITRACIN 14GM TUBE TOP SCH ×2 (08:24→17:53)
[2023-07-08] MEDS: AMLODIPINE 5MG TABLET PO SCH ×2 (08:24→20:59)
[2023-07-08] MEDS: INSULIN LISPRO 100 UNITS/ML SUBCUT SCH ×4 (08:30→21:07)
[2023-07-08] MEDS: METHYLPREDNISOLONE 4MG TABLET PO SCH (08:32)
[2023-07-08] MEDS: CEFTRIAXONE 1,000 MG in DEXTROSE 5% WATER 50 ML IV SCH (12:50)
[2023-07-08] MEDS: INSULIN GLARGINE 100 UNITS/ML SUBCUT SCH (12:51)
[2023-07-08 14:14] LABS: PLATELET ESTIMATE NORMAL
[2023-07-08 14:15] LABS: ANISOCYTOSIS 1+
[2023-07-08] MEDS: ATORVASTATIN CALCIUM 20MG TABLET PO SCH (20:59)
[2023-07-09] VITALS: BP 132/61; PULSE 60; RESP 15; TEMP 97.3
[2023-07-09] MEDS: DEXAMETHASONE 10 MG/ML VIAL IV SCH ×3 (01:40→13:25)
[2023-07-09] MEDS: METOCLOPRAMIDE HCL 10MG/2ML VIAL IV SCH ×4 (01:41→18:42)
[2023-07-09 04:00] VITALS: BP 129/57; PULSE 58; RESP 15; TEMP 97.1
[2023-07-09] MEDS: AMIODARONE HCL 200 MG TABLET PO SCH (06:18)
[2023-07-09] MEDS: BLOOD SUGAR DIAGNOSTIC STRIP TEST SCH ×4 (06:27→21:00)
[2023-07-09 07:20] LABS: HEMOGLOBIN. 9.6 g/dL (14.0-18.0); MEAN CORPUSCULAR HEMOGLOBIN 32.7 pg (28.0-32.0); MEAN CORPUSCULAR HGB CONC 34.1 g/dL (31.0-37.0); MEAN CORPUSCULAR VOLUME 95.7 fL (80.0-94.0); MEAN PLATELET VOLUME 9.8 fl (7.4-10.4); PLATELET 218 x1000/uL (130-400); RED BLOOD CELL COUNT 2.92 mill/uL (4.7-6.1); RED CELL DISTRIBUTION WIDTH 13.6 % (11.6-14.6); WHITE BLOOD COUNT 12.1 x1000/uL (4.5-11.0)
[2023-07-09 07:52] LABS: DIFFERENTIAL COMMENT 1
[2023-07-09 08:00] VITALS: BP 135/56; PULSE 60; RESP 15; TEMP 97.8
[2023-07-09] MEDS: INSULIN LISPRO 100 UNITS/ML SUBCUT SCH ×4 (08:35→21:27)
[2023-07-09 08:58] LABS: ALANINE AMINOTRANSFERASE 51 IU/L (10-49); ALBUMIN 3.3 g/dL (3.2-4.8); ASPARTATE AMINOTRANSFERASE 131 IU/L (<34); BILIRUBIN DIRECT 0.3 mg/dL (<=3.0); BILIRUBIN TOTAL 0.5 mg/dL (0.1-1.0); CALCIUM 8.8 mg/dL (8.7-10.4); CARBON DIOXIDE 24 mEq/L (21-32); CHLORIDE 98 mEq/L (98-107); GLUCOSE 157 mg/dL (70-105); POTASSIUM 4.4 mEq/L (3.5-5.1); PROTEIN TOTAL 5.4 g/dL (6.0-8.3); SODIUM 136 mEq/L (136-145); UREA NITROGEN BLOOD 42 mg/dL (9-23)
[2023-07-09] MEDS: CLOPIDOGREL 75MG TABLET PO SCH (09:45)
[2023-07-09] MEDS: METHYLPREDNISOLONE 4MG TABLET PO SCH (09:45)
[2023-07-09] MEDS: BACITRACIN 14GM TUBE TOP SCH ×2 (09:45→18:14)
[2023-07-09] MEDS: ASPIRIN 81MG TABLET PO SCH (09:46)
[2023-07-09] MEDS: AMLODIPINE 5MG TABLET PO SCH ×2 (09:46→21:26)
[2023-07-09 09:55] LABS: CREATININE 6.1 mg/dL (0.6-1.3)
[2023-07-09] MEDS: INSULIN GLARGINE 100 UNITS/ML SUBCUT SCH (11:17)
[2023-07-09 12:00] VITALS: BP 127/65; PULSE 60; RESP 12; TEMP 97.7
[2023-07-09] MEDS: CEFTRIAXONE 1,000 MG in DEXTROSE 5% WATER 50 ML IV SCH (13:25)
[2023-07-09 16:00] VITALS: BP 128/54; PULSE 55; RESP 14; TEMP 97.9
[2023-07-09 16:32] LABS: PLATELET ESTIMATE NORMAL
[2023-07-09 20:00] VITALS: BP 122/64; PULSE 56; RESP 12; TEMP 98.3
[2023-07-09] MEDS: ATORVASTATIN CALCIUM 20MG TABLET PO SCH (21:22)
[2023-07-10] VITALS (12 sets, daily range): BP systolic 113–149; BP diastolic 56–80; PULSE 54–66; RESP 12–16; TEMP 97.6–98.1; O2SAT 94
[2023-07-10] MEDS: METOCLOPRAMIDE HCL 10MG/2ML VIAL IV SCH ×3 (00:20→12:03)
[2023-07-10] MEDS: BLOOD SUGAR DIAGNOSTIC STRIP TEST SCH ×2 (06:45→11:50)
[2023-07-10 07:19] LABS: HEMATOCRIT. 29.6 % (42.0-52.0); MEAN CORPUSCULAR HEMOGLOBIN 32.6 pg (28.0-32.0); MEAN CORPUSCULAR HGB CONC 33.7 g/dL (31.0-37.0); MEAN CORPUSCULAR VOLUME 96.7 fL (80.0-94.0); MEAN PLATELET VOLUME 9.4 fl (7.4-10.4); PLATELET 232 x1000/uL (130-400); RED BLOOD CELL COUNT 3.06 mill/uL (4.7-6.1); RED CELL DISTRIBUTION WIDTH 13.6 % (11.6-14.6); WHITE BLOOD COUNT 12.2 x1000/uL (4.5-11.0)
[2023-07-10 07:28] LABS: DIFFERENTIAL COMMENT 1
[2023-07-10 07:43] LABS: CALCIUM 8.3 mg/dL (8.7-10.4); POTASSIUM 4.5 mEq/L (3.5-5.1)
[2023-07-10] MEDS: BACITRACIN 14GM TUBE TOP SCH (08:26)
[2023-07-10] MEDS: CLOPIDOGREL 75MG TABLET PO SCH (08:26)
[2023-07-10] MEDS: AMLODIPINE 5MG TABLET PO SCH (08:27)
[2023-07-10] MEDS: METHYLPREDNISOLONE 4MG TABLET PO SCH (08:27)
[2023-07-10] MEDS: INSULIN LISPRO 100 UNITS/ML SUBCUT SCH ×3 (08:29→12:36)
[2023-07-10] MEDS: ASPIRIN 81MG TABLET PO SCH (08:30)
[2023-07-10] MEDS: FAMOTIDINE 20MG/2ML VIAL IV SCH (08:30)
[2023-07-10 08:38] LABS: CREATININE 7.5 mg/dL (0.6-1.3)
[2023-07-10] MEDS ORDERED: AMIODARONE HCL 200 MG TABLET PO SCH (09:00)
[2023-07-10] MEDS: INSULIN GLARGINE 100 UNITS/ML SUBCUT SCH (10:54)
[2023-07-10] MEDS: CEFTRIAXONE 1,000 MG in DEXTROSE 5% WATER 50 ML IV SCH (12:01)
[2023-07-10 13:24] LABS: ANISOCYTOSIS 1+; PLATELET ESTIMATE NORMAL
== END 2023-07-10 17:26 | disposition home health service (06) | DRG 233 ==
LOC: ER 01:38 → 8WST 05:10 → 3WST 14:14 → CVICU 07-03 14:49 → 3WST 07-07 18:17
PROVIDERS: ADMIT Hospitalist; ATTEND Hospitalist
PROC: 4A023N7 Measurement of Cardiac Sampling and Pressure, Left Heart, Percutaneous Approach (ICD-10-PCS; 2023-07-02)
PROC: B2151ZZ Fluoroscopy of Left Heart using Low Osmolar Contrast (ICD-10-PCS; 2023-07-02)
PROC: B2111ZZ Fluoroscopy of Multiple Coronary Arteries using Low Osmolar Contrast (ICD-10-PCS; 2023-07-02)
PROC: 5A09357 Assistance with Respiratory Ventilation, Less than 24 Consecutive Hours, Continuous Positive Airway Pressure (ICD-10-PCS; 2023-07-02)
PROC: 5A1D70Z Performance of Urinary Filtration, Intermittent, Less than 6 Hours Per Day (ICD-10-PCS; 2023-07-02)
PROC: 02100Z9 Bypass Coronary Artery, One Artery from Left Internal Mammary, Open Approach (ICD-10-PCS; principal; 2023-07-03)
PROC: 021209W Bypass Coronary Artery, Three Arteries from Aorta with Autologous Venous Tissue, Open Approach (ICD-10-PCS; 2023-07-03)
PROC: 06BQ4ZZ Excision of Left Saphenous Vein, Percutaneous Endoscopic Approach (ICD-10-PCS; 2023-07-03)
PROC: 5A1D70Z Performance of Urinary Filtration, Intermittent, Less than 6 Hours Per Day (ICD-10-PCS; 2023-07-04)
PROC: 5A1D70Z Performance of Urinary Filtration, Intermittent, Less than 6 Hours Per Day (ICD-10-PCS; 2023-07-05)
PROC: 5A1D70Z Performance of Urinary Filtration, Intermittent, Less than 6 Hours Per Day (ICD-10-PCS; 2023-07-06)
PROC: 5A1D70Z Performance of Urinary Filtration, Intermittent, Less than 6 Hours Per Day (ICD-10-PCS; 2023-07-08)
PROC: 5A1D70Z Performance of Urinary Filtration, Intermittent, Less than 6 Hours Per Day (ICD-10-PCS; 2023-07-10)
DX: I21.4 Non-ST elevation (NSTEMI) myocardial infarction (principal); I50.33 Acute on chronic diastolic (congestive) heart failure; J96.01 Acute respiratory failure with hypoxia; N18.6 End stage renal disease; T82.855A Stenosis of coronary artery stent, initial encounter; I13.2 Hypertensive heart and chronic kidney disease with heart failure and with stage 5 chronic kidney disease, or end stage renal disease; E87.1 Hypo-osmolality and hyponatremia; N39.0 Urinary tract infection, site not specified; I25.110 Atherosclerotic heart disease of native coronary artery with unstable angina pectoris; D64.9 Anemia, unspecified; D72.829 Elevated white blood cell count, unspecified; I16.0 Hypertensive urgency; E11.22 Type 2 diabetes mellitus with diabetic chronic kidney disease; E66.9 Obesity, unspecified; E78.5 Hyperlipidemia, unspecified; E87.5 Hyperkalemia; B96.20 Unspecified Escherichia coli [E. coli] as the cause of diseases classified elsewhere; Z91.158 Patient's noncompliance with renal dialysis for other reason; Z68.26 Body mass index [BMI] 26.0-26.9, adult; Z99.2 Dependence on renal dialysis; Z95.5 Presence of coronary angioplasty implant and graft; Z88.8 Allergy status to other drugs, medicaments and biological substances; Z79.899 Other long term (current) drug therapy; Y83.8 Other surgical procedures as the cause of abnormal reaction of the patient, or of later complication, without mention of misadventure at the time of the procedure; Y92.89 Other specified places as the place of occurrence of the external cause
CPT/HCPCS: 36415; 36600; 71045; 80048; 80053; 80061; 80076; 81003; 82375; 82805; 82962; 83036; 83735; 83880; 84100; 84132; 84443; 84484; 85025; 85347; 86705; 86709; 86850; 86900; 86920; 87186; 87340; 87426; 90935; 93005; 93306; 93459; 93970; 94640; 94660; 96365; 96375; 97110; 97116; 97162; 97166; 97530; 99291; C1729; C1751; C1758; C1760; C1769; C1887; J0282; J0610; J0690; J0696; J1100; J1200; J1250; J1265; J1644; J1815; J1940; J2250; J2370; J2405; J2440; J2704; J2710; J2720; J2765; J2930; J3010; J3370; J3475; J3480; J3490; J7050; J7060; J7509; L3908; P9041; P9047; Q9967